=== PATIENT | female | born 1995 | race Caucasian/White ===

== ENCOUNTER 2018-02-06 11:15 | Emergency (ER) | payer MEDICAID, OTHER ==
[~2018-02-06] VITALS: Ht 175.3 cm; Wt 63.5 kg
[2018-02-06 11:19] VITALS: BP_SYST 134
[2018-02-06] MEDS ORDERED: methylPREDNISolone SOD SUCC/PF 62.5 MG/ML VIAL IM ONE (12:15)
[2018-02-06 12:37] VITALS: BP_SYST 128
== END 2018-02-06 12:37 | disposition home or self-care (01) ==
LOC: SED 11:15
DX: T78.40XA Allergy, unspecified, initial encounter (principal); L50.9 Urticaria, unspecified; E03.9 Hypothyroidism, unspecified; X58.XXXA Exposure to other specified factors, initial encounter
CPT/HCPCS: 96372; 99283; J2930

== ENCOUNTER 2019-05-12 17:47 | Emergency (ER) | payer BC, OTHER ==
[~2019-05-12] VITALS: Ht 175.3 cm; Wt 65.8 kg
[2019-05-12 18:10] VITALS: BP_SYST 133
--- NOTE | 2019-05-12 18:18 | NUR ---
Patient triaged and placed in waiting room. VSS and patient appears in no acute distress at this time. Accompanied by self, awaiting available bed, and MD notified of need for MSE.
--- NOTE | 2019-05-12 18:39 | NUR ---
Patient to ER bed 7 to gown for evaluation. Side rails up. Report given to BHASKAR Lewis.
--- NOTE | 2019-05-12 18:45 | NUR ---
Patient presented to ER with possible STD. Patient A&Ox4, afebrile, ambulatory to ER, blisters to genitalia, foul smelling discharge, denies pain at tis time, denies N/V/D. Partient states she has lesions x6 days, mild dysuria & foul smelling vaginal discharge x3 days, sexually active with 1 partner x2 months. Patient staes health Hx of Hyperthyroid. Patient denies history of STD's.
--- NOTE | 2019-05-12 19:18 | NUR ---
Report to [place]
[2019-05-12 19:31] LABS: BILIRUBIN,URINE NEGATIVE (NEGATIVE); BLOOD, URINE 1+ (NEGATIVE); CLARITY/URINE CLEAR (CLEAR); COLOR,URINE YELLOW (YELLOW); GLUCOSE,URINE NEGATIVE (NEGATIVE); KETONES,URINE NEGATIVE (NEGATIVE); LEUKOCYTE ESTERASE ,URINE 1+ (NEGATIVE); NITRITE, URINE NEGATIVE (NEGATIVE); PROTEIN URINE NEGATIVE (NEGATIVE); UROBILINOGEN,URINE 0.2 (0.2-1.0)
[2019-05-12] MEDS ORDERED: AZITHROMYCIN 250 MG TABLET PO ONE (19:45)
[2019-05-12] MEDS ORDERED: cefTRIAXone 1 GM in LIDOCAINE 1%, 20 ML MDV 2.1 ML IM ONE (19:45)
--- NOTE | 2019-05-12 19:52 | NUR ---
Medications was given, pt tolerated well. No adverse reactions, will continue to monitor.
[2019-05-12 19:56] LABS: BACTERIA,URINE FEW /HPF (None Seen); MUCUS,URINE None Seen /LPF (None Seen); WBC,URINE 20-50 /HPF (0-3)
[2019-05-12 20:02] VITALS: BP_SYST 127
--- NOTE | 2019-05-12 20:02 | NUR ---
Patient given written and verbal discharge instructions and verbalizes understanding. ER MD discussed with patient the results and treatment provided. Patient in stable condition. ID arm band removed. Rx of Doxycycline, Macrobid, and Flagyl given. Patient educated on pain management and to follow up with PMD. Pain Scale 0. Opportunity for questions provided and answered. Medication side effect fact sheet provided.
[2019-05-14 11:40] LABS: HSV 1 IgG, TYPE SPECIFIC <0.91; HSV 2 IgG, TYPE SPECIFIC <0.91
[2019-05-16 10:12] LABS: CHLAMYDIA TRACHOMATIS NAA NEGATIVE (Negative); NEISSERIA GONORRHOEAE NAA NEGATIVE (Negative)
== END 2019-05-12 20:02 | disposition home or self-care (01) ==
LOC: SED 17:47
DX: N76.0 Acute vaginitis (principal); B96.89 Other specified bacterial agents as the cause of diseases classified elsewhere; N39.0 Urinary tract infection, site not specified; R03.0 Elevated blood-pressure reading, without diagnosis of hypertension; Z11.3 Encounter for screening for infections with a predominantly sexual mode of transmission
CPT/HCPCS: 36415; 81000; 81025; 86592; 86695; 86696; 87086; 87210; 87491; 87591; 96372; 99283; J0696; J2001; Q0144